=== PATIENT | female | born 1955 | race Two or more races ===

== ENCOUNTER 2020-09-16 08:55 | Day surgery (SDC) | payer OTHER ==
[~2020-09-16 08:55] MED LIST: CATAFLAN PO; CLONAZEPAM1 M1 PO; CRESTOR10 MG PO; HYDROCHLOROTH12.5 MG PO; NORVASC2.5 M1 PO; OMEPRAZOLE MAGN20 MG PO; PRILOSEC OTC20 MG PO; PROZAC40 MG PO; ZANAFLEX4 M1 PO
== END 2020-09-16 16:00 | disposition home or self-care (01) ==
LOC: CIR.AMB 08:55
PROVIDERS: ATTEND Orthopaedic Surgery
DX: M75.122 Complete rotator cuff tear or rupture of left shoulder, not specified as traumatic (principal); M75.22 Bicipital tendinitis, left shoulder; Z20.828 Contact with and (suspected) exposure to other viral communicable diseases
CPT/HCPCS: 29827; 23406; 29823; 29826; C1776